=== PATIENT | female | born 1950 | race Caucasian/White ===

== ENCOUNTER 2016-09-21 16:38 | Observation (INO) | payer MEDICARE, OTHER ==
[2016-09-21] MEDS ORDERED: Ativan 0.5 MG PO PRN (17:00)
[2016-09-21] MEDS: NON-FORMULARY ITEM PO SCH (17:17)
[2016-09-21 18:26] LABS: Mean Cell Volume 96.6 fl (78-100); Mean Corpuscular Hemoglobin 32.3 pg (26-32); Mean Platelet Volume 9.5 fl (6-9.5); Platelet Count 323 K/mm3 (150-450); Red Blood Count 4.15 M/mm3 (4.1-5.4); Red Cell Distribution Width 12.7 % (11.5-14.0); White Blood Count 6.3 K/mm3 (4.0-10.5)
[2016-09-21 19:05] LABS: ALKALINE PHOSPHATASE 77 U/L (46-116); ANION GAP 15.8 MEQ/L (5-15); BILIRUBIN,TOTAL 0.2 mg/dL (0.2-1.0); BLOOD UREA NITROGEN 12 mg/dL (9-20); CHLORIDE 102 mEq/L (98-107); Carbon Dioxide 26.4 mEq/L (21-32); Glucose 103 MG/DL (70-110); Potassium 3.6 mEq/L (3.5-5.1); SGOT/AST 20 U/L (15-37); SGPT/ALT 17 U/L (12-78); SODIUM 141 mEq/L (136-145)
[2016-09-21] MEDS: Dextrose 5% -0.45 NaCl 1000 ML 1,000 ML IV SCH (21:37)
[2016-09-21] MEDS: ELAVIL 10 MG PO SCH (21:48)
[2016-09-21 22:17] LABS: Bacteria PACKED /HPF (NEGATIVE); COMPLETE URINE MICROSCOPIC? YES; Collection Type CLEAN CATCH; Epithelial Cells MODERATE /HPF (FEW); Mucus MODERATE /HPF (NEGATIVE); WBC 15-25 /HPF (0-5)
[2016-09-22] MEDS: TYLENOL 325 MG PO PRN ×2 (00:33→16:37)
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
[2016-09-22] MEDS: Toprol-Xl 25MG Tablets PO SCH (10:49)
[2016-09-22] MEDS: PRISTIQ ER PO SCH (10:49)
[2016-09-22] MEDS: ROCEPHIN 1 Gm-D5w 50 ml Bag** 50 ML IV SCH (10:49)
[2016-09-22] MEDS: Lexapro 10 MG PO SCH (10:49)
[2016-09-22] MEDS: Zestril 10 MG PO SCH (10:49)
[2016-09-22] MEDS: Adalat CC 30 MG TABLET PO SCH (10:49)
[2016-09-22] MEDS: ECOTRIN 81 MG PO SCH (10:49)
[2016-09-22] MEDS: NON-FORMULARY ITEM PO SCH (10:50)
[2016-09-22] MEDS: Ativan 0.5 MG PO PRN ×3 (10:53→21:46)
[2016-09-22] MEDS: Dextrose 5% -0.45 NaCl 1000 ML 1,000 ML IV SCH (11:01)
[2016-09-22] MEDS: PREMARIN PO SCH (11:01)
[2016-09-22] MEDS: ELAVIL 10 MG PO SCH (21:46)
[2016-09-23] MEDS: Dextrose 5% -0.45 NaCl 1000 ML 1,000 ML IV SCH (06:44)
[2016-09-23 07:24] VITALS: O2SAT 98
--- NOTE | 2016-09-23 09:10 | PCM.NOTE ---
Date and Time: 09/23/16904 Subjective Assessment: She reports she does not remember what she talked to Reema about from the [facility]. She denies any purposeful intention of hurting herself but becomes tearful when I ask her if she is safe at home as she describes her and others at home tell her that she is crazy and this makes her sad as she states she feels like no one will listen to her side of the story. On admission, I noted that her weight was down to 88 lbs from a baseline of 100 lbs. She continues to have a poor appetite here. I discussed again with Reema that I do not feel she is stable to go home and I am concerned about her depression and weight loss. If she loses any more weight, she will not be able to sustain herself. - Review of Systems Eyes: No Symptoms Respiratory: No Symptoms Cardiac: No Symptoms Abdominal/Gastrointestinal: No Symptoms Genitourinary Symptoms: No Symptoms Musculoskeletal: No Symptoms Psychological: Anxiety, Depression, Emotional Lability, Memory Loss, Other Objective Exam General Appearance: other (tearful when talking about her home situation for just a couple of minutes. Denies SI/HI.) Neurologic Exam: alert, cooperative, other (poor insight, tangential speech, paranoid.) Respiratory Exam: normal breath sounds, lungs clear, No crackles/rales, No rhonchi, No wheezing Cardiovascular Exam: regular rate/rhythm, normal heart sounds, No murmur, No friction rub, No gallop Gastrointestinal/Abdomen Exam: soft, normal bowel sounds, No tenderness, No distention, No mass Extremity Exam: other (no c/c/e) OBJECTIVE DATA Vital Signs: Vital Signs - 24 hr Temp Pulse Resp BP BP Pulse Ox 09/23/16 07:24 97.7 F 69 17 151/75 98 09/23/16 04:00 97.8 F 78 16 125/89 97 09/23/16 00:00 97.9 F 65 17 145/70 94 L 09/22/16 20:00 98.2 F 71 16 139/93 97 09/22/16 16:00 98.4 F 71 18 143/66 98 09/22/16 11:56 97.1 F 87 18 148/67 97 Pain Assessment - Last Documented Pain Intensity 4 Pain Scale Used [facility] Intake and Output: Intake & Output 0209/22/16 09/23/16 09/24/16 06:59 06:59 06:59 06:59 Intake Total 596 2322 Output Total 3 Balance 596 2319 Weight 40.052 kg 40.959 kg Assessment/Plan (1) Severe depression Current Visit: Yes Status: Acute Assessment & Plan: Reema from [facility] states she will talk to the psychiatrist again as she agrees that her weight loss is harmful to Sarah. If they do not have beds available, operations planner, Chema Watters, will work on placement in a Geripsych unit for stabilization of her mood before she returns to her home situation. Code(s): F32.2 - MAJOR DEPRESSV DISORD, SINGLE EPSD, SEV W/O PSYCH FEATURES (2) Failure to thrive syndrome, adult Current Visit: Yes Status: Acute Assessment & Plan: Continue Ensure. Dietary consult ordered. Will start checking daily weights.
[2016-09-23] MEDS: Toprol-Xl 25MG Tablets PO SCH (09:24)
[2016-09-23] MEDS: Lexapro 10 MG PO SCH (09:24)
[2016-09-23] MEDS: Adalat CC 30 MG TABLET PO SCH (09:24)
[2016-09-23] MEDS: PRISTIQ ER PO SCH (09:24)
[2016-09-23] MEDS: Zestril 10 MG PO SCH (09:25)
[2016-09-23] MEDS: ECOTRIN 81 MG PO SCH (09:25)
[2016-09-23] MEDS: ROCEPHIN 1 Gm-D5w 50 ml Bag** 50 ML IV SCH (09:25)
[2016-09-23] MEDS: PREMARIN PO SCH (09:27)
[2016-09-23] MEDS ORDERED: NIFEDIPINE 60 MG PO SCH (10:00)
[2016-09-23] MEDS: NON-FORMULARY ITEM PO SCH (10:03)
[2016-09-23] MEDS ORDERED: ENOXAPARIN SODIUM SQ SCH (10:45)
[2016-09-23] MEDS: Ativan 0.5 MG PO PRN (11:00)
[2016-09-23 11:17] VITALS: BP 146/76; PULSE 77
== END 2016-09-23 15:23 | disposition short-term general hospital (02) ==
LOC: MED SURG 16:38 → EEVIPCON 16:38 → INTOOBSV 16:38
PROVIDERS: ADMIT Internal Medicine; ATTEND Internal Medicine
DX: F32.2 Major depressive disorder, single episode, severe without psychotic features (principal); R62.7 Adult failure to thrive; Z79.899 Other long term (current) drug therapy
CPT/HCPCS: 81000; 84443; 36415; 87186; 85027; 87077; 80053; 87086; A9270 ×17; 90791; G0378; J0696; J1650; Q3014

== ENCOUNTER 2017-04-12 03:14 | Emergency (ER) | payer MEDICARE, OTHER ==
[2017-04-12 03:34] VITALS: O2SAT 96
[2017-04-12] MEDS ORDERED: Sodium Chloride 0.9% 1000 ML 1,000 ML ONE (03:35)
[2017-04-12] MEDS ORDERED: Sodium Chloride 0.9% 1000 ML 1,000 ML IV SCH (03:45)
[2017-04-12 03:54] LABS: Eosinophil % 2.1 % (0.00-5.0); Granulocytes % 46.5 % (36.0-66.0); Lymphocytes % 38.4 % (24.0-44.0); Mean Cell Volume 98.3 fl (78-100); Mean Corpuscular Hemoglobin 33.7 pg (26-32); Mean Platelet Volume 8.4 fl (6-9.5); Platelet Count 387 K/mm3 (150-450); Red Blood Count 3.44 M/mm3 (4.1-5.4); Red Cell Distribution Width 14.2 % (11.5-14.0); White Blood Count 7.2 K/mm3 (4.0-10.5)
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
[2017-04-12 04:06] LABS: ADD URINE CULTURE? YES (NO); Bacteria RARE /HPF (NEGATIVE); Bilirubin NEGATIVE (NEGATIVE); Blood TRACE NON-HEM Ery/ul (0-5); COMPLETE URINE MICROSCOPIC? YES; Collection Type CATH; Epithelial Cells FEW /HPF (FEW); Glucose NEGATIVE (NEGATIVE); Leukocyte Esterase NEGATIVE (NEGATIVE); Yeast FEW /HPF (NEGATIVE)
[2017-04-12 04:15] LABS: ALBUMIN 3.8 g/dL (3.4-5.0); ALKALINE PHOSPHATASE 86 U/L (46-116); ANION GAP 16.5 MEQ/L (5-15); BLOOD UREA NITROGEN 12 mg/dL (9-20); CHLORIDE 99 mEq/L (98-107); Carbon Dioxide 23.6 mEq/L (21-32); Glucose 91 MG/DL (70-110); LIPASE 280 U/L (73-393); Potassium 3.8 mEq/L (3.5-5.1); SGOT/AST 25 U/L (15-37); SGPT/ALT 14 U/L (12-78); SODIUM 135 mEq/L (136-145); Total Protein 7.7 gm/dL (6.4-8.2)
[2017-04-12] MEDS ORDERED: TYLENOL 325 MG PO ONE (07:03)
[2017-04-12] MEDS ORDERED: TYLENOL 325 MG ONE (07:16)
[2017-04-12] MEDS ORDERED: BACIGUENT PACKET ONE (07:23)
[2017-04-12] MEDS ORDERED: BACIGUENT PACKET TP ONE (07:39)
[2017-04-12 07:52] VITALS: BP 157/95; PULSE 88
--- NOTE | 2017-04-12 08:52 | XRAY ---
Indication: Pain following injury. Comparison: February 19, 2008. 2 views of the left humerus demonstrates healed distal humeral shaft fracture and new finding for old 9-11th rib fractures. No other bony, articular, or soft tissue abnormalities. Comment: Preliminary interpretation was made by [facility]. No critical discrepancy.
--- NOTE | 2017-04-12 08:58 | XRAY ---
Indication: Pain following injury. Comparison: None. 2 views of the left humerus demonstrates nondisplaced acute transverse fracture involving the distal metadiaphysis of the radius. Elsewhere old fractures of the distal ulna, ulnar styloid process, and 4th metacarpal as seen on left hand exam July 14, 2014. No other bony, articular, or soft tissue abnormalities. Comment: Preliminary interpretation was made by [facility]. No critical discrepancy.
== END 2017-04-12 10:08 | disposition home or self-care (01) ==
LOC: ED 03:14
DX: F10.129 Alcohol abuse with intoxication, unspecified (principal); S51.012A Laceration without foreign body of left elbow, initial encounter; M79.602 Pain in left arm; R19.7 Diarrhea, unspecified; Z79.899 Other long term (current) drug therapy; I10 Essential (primary) hypertension
CPT/HCPCS: 99284; 96360; 82150; 81000; 36415; 83690; 83735; 80307; 85025; 80053; 87086; 73060; 73090; P9612; G0481; 36000; A9270-GY

== ENCOUNTER 2017-04-13 15:46 | Emergency (ER) | payer MEDICARE, OTHER ==
--- NOTE | 2017-04-13 16:23 | ERPHSYRPT ---
- History of Present Illness Time Seen by Provider: 04/13/17 16:05 Source: patient Exam Limitations: clinical condition Patient Subjective Stated Complaint: PT ET MENTAL HEALTH SPECIALIST REPORT THAT PT LEFT FINGER IS SWOLLEN ET SHE CAN'T GET HER RING OFF Triage Nursing Assessment: PT PINK WARM ET DRY-JOSE R WRAP TO LEFT WRIST VERY TIGHT -SWELLING NOTED DISTAL-WEDDING RING REMOVED-PLACED IN SPECI CUP IN PT PURSE-PT DENIES PAIN Physician History: PATIENT WITH HISTORY OF HYPERTENSION AND CHRONIC ALCOHOL ABUSE, FELL 4 DAYS SUSTAINING LEFT FOREARM AND WRIST INJURY EVALUATED IN EMERGENCY FOR INJURY AND TREATED WITH A JOSE R BANDAGE FOR WRIST STRAIN. NOW PRESENTS TO EMERGENCY WITH LEFT HAND AND FOREARM SWELLING AND A TIGHT JOSE R BANDAGE AROUND FOREARM UP TO HAND. DENIES RECURRENT INJURY OR TRAUMA. Occurred: days ago Method of Injury: fell Quality: constant Severity of Pain-Max: moderate Severity of Pain-Current: moderate Extremities Pain Location: forearm: left, wrist: left, hand: left Modifying Factors: Improves With: movement Associated Symptoms: other (SWELLING OVER EXTREMITY) Allergies/Adverse Reactions: propoxyphene HCl [From Darvon] Allergy (Verified 04/13/17 15:57) Home Medications: Amitriptyline HCl 10 mg [Elavil 10 mg] 50 mg PO HS 09/21/16 [History] Aspirin [Aspirin EC] 81 mg PO DAILY 09/21/16 [History] Lisinopril 10 mg [Zestril 10 MG] 10 mg PO DAILY 09/21/16 [History] Lorazepam 1 mg PO TIDPRN PRN 09/21/16 [History] Estrogens, Conjugated [Premarin] 0.3 mg PO DAILY 04/12/17 [History] Nifedipine [Afeditab Cr] 60 mg PO DAILY 04/12/17 [History] Hx Tetanus, Diphtheria Vaccination/Date Given: Yes Hx Influenza Vaccination/Date Given: No Hx Pneumococcal Vaccination/Date Given: No Immunizations Up to Date: Yes - Review of Systems Constitutional: No Symptoms Eyes: No Symptoms Ears, Nose, & Throat: No Symptoms Respiratory: No Symptoms Cardiac: No Symptoms Abdominal/Gastrointestinal: No Symptoms Genitourinary Symptoms: No Symptoms Musculoskeletal: Joint Pain, Joint Swelling Skin: No Symptoms Neurological: No Symptoms Psychological: No Symptoms Endocrine: No Symptoms - Past Medical History Pertinent Past Medical History: Yes Neurological History: No Pertinent History ENT History: No Pertinent History Cardiac History: Hypertension Respiratory History: Emphysema Endocrine Medical History: No Pertinent History Musculoskeletal History: No Pertinent History GI Medical History: GI Bleed, Ulcer History: Bladder Cancer Psycho-Social History: Anxiety, Depression, Panic Disorder Female Reproductive Disorders: No Pertinent History - Past Surgical History Past Surgical History: Yes Neuro Surgical History: No Pertinent History Cardiac: No Pertinent History Respiratory: No Pertinent History Gastrointestinal: Other Musculoskeletal: Orthopedic Surgery Female Surgical History: Hysterectomy Other Surgical History: PERFORATED ULCER, KNEE SURGERY-LIGAMENT REATTACHED, - Social History Smoking Status: Current every day smoker How long have you smoked: 40 Exposure to second hand smoke: Yes Alcohol Use: Socially Drug Use: none Patient Lives Alone: No Significant Family History: no pertinent family hx - Female History Hx Now: No - Nursing Vital Signs Nursing Vital Signs: Initial Vital Signs Temperature 98.7 F 04/13/17 15:56 Pulse Rate 100 H 04/13/17 15:56 Respiratory Rate 20 04/13/17 15:56 Blood Pressure 175/80 04/13/17 15:56 O2 Sat by Pulse Oximetry 97 04/13/17 15:56 Pain Scale Pain Intensity 0 - Physical Exam General Appearance: no apparent distress Eyes, Ears, Nose, Throat Exam: moist mucous membranes Neck Exam: non-tender, supple Cardiovascular/Respiratory Exam: chest non-tender, normal breath sounds, regular rate/rhythm, no respiratory distress Elbow/Forearm Exam: normal inspection, pain (MID LEFT FOREARM TENDERNESS VOLAR ASPECT WITHOUT ECCHYMOSIS OR CREPITUS), soft tissue tenderness (THERE IS A 1CM X 3MM ABRASION OVER LEFT OLECRAN WITHOUT SWELLING OR CREPITUS OR ECCHYMOSIS) Wrist Exam: normal inspection, non-tender Hand Exam: soft tissue tenderness (MID TO DISTAL LEFT 2ND TO 5TH METACARPALS), swelling SpO2 Interpretation: normal SpO2: 97 Oxygen Delivery: Room Air - Radiology Exams Left Elbow X-ray Interpretation: Discussed w/ radiologist (THERE IS A OLD DISTAL HUMERAL SHAFT FRACTURE AND CHRONIC APPEARING RADIAL HEAD DISLOCATION WITY RADIAL ULNAR FUSION UNCHANGED WITH STUDY FROM 04/12/2017) Left Hand X-ray Interpretation: Discussed w/ radiologist (POSTERIOR MCP SOFT TISSUE SWELLING, OSTEOPENIA, 5TH PIP DEGENERATIVE CHANGES AND OLD FRACTURES OF THE METACARPAL AND ULNAR STYLOID) Left Wrist X-ray Interpretation: Discussed w/ radiologist (THERE IS A NONDISPLACED ACUTE TRANSVERSE FRACTURE INVOLVING THE DISTAL METADIAPHYSIS OF THE RADIUS AND OLD FRACTURES OF THE DISTAL ULNA, ULNAR STYLOID PROCESS AND 4TH METACARPAL) Ordered Tests: Active Orders 24 hr Category Date Time Status ELBOW (MINIMUM 3 VIEWS) Stat Exams 04/13/17 16:15 Completed HAND (MINIMUM 3 VIEWS) Stat Exams 04/13/17 16:15 Completed WRIST (MIN 3 VIEWS) Stat Exams 04/13/17 16:16 Completed - Progress Progress Note: 04/13/17 17:28 PATIENT GIVEN LEFT ARM SLING, ORTHOGLASS SPLINT TO LEFT FOREARM 04/13/17 17:40 Counseled pt/family regarding: diagnosis, rad results - Departure Time of Disposition: 17:55 Departure Disposition: Home Clinical Impression: LEFT DISTAL RADIAL FRACTURE Condition: Stable Critical Care Time: No Referrals: FARZANEH ALANIZ [Primary Care Provider] - Additional Instructions: CALL ORTHOPEDIC SURGEON DR ROSALES TOMORROW FOR APPOINTMENT. TYLENOL EVERY 4 HOURS FOR PAIN. MAINTAIN FOREARM SPLINT WITH SLING UNTIL EVALUATED BY ORTHOPEDIC SURGEON.
--- NOTE | 2017-04-13 16:50 | XRAY ---
Indication: Pain following injury. Comparison: None. 3 views of the left hand demonstrates posterior MCP soft tissue swelling, osteopenia, 5th PIP degenerative changes, and old fractures of the 4th metacarpal and ulnar styloid. Distal radial fracture reported separately. No other bony, articular, or soft tissue abnormalities.
--- NOTE | 2017-04-13 16:53 | XRAY ---
Indication: Pain following fall. Comparison: None 3 views of the left elbow demonstrates old distal humeral shaft fracture and chronic appearing radial head dislocation with radial ulnar fusion unchanged with respect to left humerus exam April 12, 2017. No other bony, articular, or soft tissue abnormalities.
--- NOTE | 2017-04-13 16:54 | XRAY ---
Indication: Pain following injury. Comparison: None. 3 views of the left wrist demonstrates nondisplaced acute transverse fracture involving the distal metadiaphysis of the radius and old fractures of the distal ulna, ulnar styloid process, and 4th metacarpal all unchanged with respect to left forearm exam of April 12, 2017. No new/acute findings.
[2017-04-13 17:36] VITALS: BP 155/80; PULSE 99
[2017-04-13 17:37] VITALS: O2SAT 97
== END 2017-04-13 17:51 | disposition home or self-care (01) ==
LOC: ED 15:46
PROC: 2W3DX1Z Immobilization of Left Lower Arm using Splint (ICD-10-PCS; principal; 2017-04-13)
DX: S52.92XA Unspecified fracture of left forearm, initial encounter for closed fracture (principal); W19.XXXD Unspecified fall, subsequent encounter
CPT/HCPCS: 29126; 73080; 73110; 73130; 99283

== ENCOUNTER → 2017-10-18 | Emergency (ER) | payer MEDICARE, OTHER ==
[~2017-10-18] MED LIST: Macrobid 100MG Capsule ONE
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
[2017-10-18 13:17] LABS: ALBUMIN 3.9 g/dL (3.5-5.0); ALKALINE PHOSPHATASE 77 U/L (38-126); ANION GAP 15.7 MEQ/L (5-15); BLOOD UREA NITROGEN 14 mg/dL (7-17); CHLORIDE 105 mmol/L (98-107); Calcium 9.7 mg/dL (8.4-10.2); Carbon Dioxide 23 mmol/L (22-30); Creatinine 1 0.85 mg/dL (0.52-1.04); Glucose 108 mg/dL (74-106); SGOT/AST 29 U/L (14-36); SGPT/ALT 13 U/L (0-35); SODIUM 140 mmol/L (137-145); Total Protein 7.5 g/dL (6.3-8.2)
[2017-10-18 13:25] LABS: BASOPHIL % 1.1 % (0.0-0.4); Basophil (Absolute #) 0.07 (0-0.4); Eosinophil % 0.5 % (0.00-5.0); Eosinophil (Absolute #) 0.03 (0-0.5); Granulocytes % 57.3 % (36.0-66.0); Hematocrit 38.1 % (35-47); Hemoglobin 12.6 gm/dl (12.0-16.0); Lymphocyte (Absolute #) 1.95 (1.0-4.6); Lymphocytes % 29.5 % (24.0-44.0); Mean Cell Volume 99.5 fl (78-100); Mean Corpuscular Hgb Concent. 33.1 g/dl (32-36); Mean Platelet Volume 8.7 fl (6-9.5); Monocyte (Absolute #) 0.77 (0.0-1.3); Monocytes % 11.6 % (0.0-12.0); Platelet Count 789 K/mm3 (150-450); Red Blood Count 3.83 M/mm3 (4.1-5.4); Red Cell Distribution Width 12.8 % (11.5-14.0); White Blood Count 6.6 K/mm3 (4.0-10.5)
[2017-10-18 13:28] LABS: ACETAMINOPHEN < 10 ug/ml (10-30); ETHYL ALCOHOL < 10 mg/dL (0-9); SALICYLATE < 1.0 mg/dL (2-20)
[2017-10-18 13:30] LABS: Mean Corpuscular Hemoglobin 32.8 pg (26-32)
[2017-10-18 14:19] LABS: Amphetamine,Urine NEGATIVE (NEGATIVE); Barbiturate,Urine NEGATIVE (NEGATIVE); Benzodiazepine,Urine NEGATIVE (NEGATIVE); Cocaine,Urine NEGATIVE (NEGATIVE); Methadone,Urine NEGATIVE (NEGATIVE); Opiate,Urine NEGATIVE (NEGATIVE); PCP,Urine NEGATIVE (NEGATIVE); THC,Urine NEGATIVE (NEGATIVE)
[2017-10-18 14:44] LABS: Appearance HAZY (CLEAR); Bacteria MODERATE /HPF (NEGATIVE); Bilirubin NEGATIVE (NEGATIVE); Blood NEGATIVE Ery/ul (0-5); Epithelial Cells FEW /HPF (FEW); Glucose NEGATIVE (NEGATIVE); Ketones NEGATIVE (NEGATIVE); Leukocyte Esterase 1+ (NEGATIVE); Nitrite POSITIVE (NEGATIVE); Protein,Urine Dip NEGATIVE (Negative); Urobilinogen NORMAL mg/dL (0-1)
[2017-10-18] MEDS: Macrobid 100MG Capsule PO ONE (16:02)
[2017-10-18 16:28] VITALS: BP 111/76; PULSE 90
[2017-10-18 18:05] VITALS: O2SAT 99
== END ==
LOC: ED 11:07
DX: F29 Unspecified psychosis not due to a substance or known physiological condition (principal); I10 Essential (primary) hypertension
CPT/HCPCS: 99285; 81000; 36415; 80307 ×2; 85025; 80053; 87086; G0480; G0481; 87077; 87186; A9270-GY